=== PATIENT | female | born 1965 | race Caucasian/White ===

== ENCOUNTER 2022-01-15 15:12 | Emergency (ER) | payer MEDICAID ==
[~2022-01-15] VITALS: Ht 165.1 cm; Wt 83.5 kg
[~2022-01-15 15:12] MED LIST: IBUP-1953 PO
--- NOTE | 2022-01-15 15:30 | NUR ---
BIBS C/O CHRONIC BACK PAIN GETTING WORSE. DENIES ANY RECENT INJURY. PAIN IS 10/10 ON PAIN SCALE. AWAITING MD ORDERS.
[2022-01-15] MEDS ORDERED: IBUPROFEN 600 MG TABLET ONE (15:47)
[2022-01-15] MEDS ORDERED: HYDROCODONE/APAP 10/325MG TABLET ONE (15:47)
--- NOTE | 2022-01-15 15:58 | NUR ---
MOTRIN AND NORCO PROVIDED TO PT, VERÓNICA WELL. WARM BLANKET PROVIDED TO PT.
[2022-01-15] MEDS ORDERED: HYDROCODONE/APAP 10/325MG TABLET PO ONE (16:00)
[2022-01-15] MEDS ORDERED: IBUPROFEN 600 MG TABLET PO ONE (16:00)
[2022-01-15] MEDS ORDERED: CYCL10TA9 PO (16:55)
[2022-01-15] MEDS ORDERED: NAPR-1164 PO (16:55)
[2022-01-15 17:05] VITALS: BP 148/98
--- NOTE | 2022-01-15 17:05 | NUR ---
Patient discharged to home in stable condition. Written and verbal after care instructions given. Patient verbalizes understanding of instruction.
== END 2022-01-15 17:09 | disposition home or self-care (01) ==
LOC: ER 15:15
DX: G89.29 Other chronic pain (principal); M54.50 Low back pain, unspecified; G43.909 Migraine, unspecified, not intractable, without status migrainosus; Z79.1 Long term (current) use of non-steroidal anti-inflammatories (NSAID)
CPT/HCPCS: 72110-TC

== ENCOUNTER 2024-10-29 11:52 | Emergency (ER) | payer MEDICAID ==
[~2024-10-29] VITALS: Ht 162.6 cm; Wt 74.8 kg
[~2024-10-29 11:52] MED LIST changes: +CYCL10TA9 PO; +NAPR-1164 PO
[2024-10-29] MEDS ORDERED: MORPHINE SULFATE INJ 4 MG/ML DISP.SYRIN ONE (12:25)
[2024-10-29] MEDS ORDERED: ONDANSETRON HCL/PF 4 MG/2 ML VIAL ONE (12:25)
[2024-10-29] MEDS: IV NS 0.9% 1,000 ML BAG IV ONE (12:39)
[2024-10-29] MEDS: MORPHINE SULFATE INJ 2 MG/ML DISP.SYRIN IV ONE (12:40)
[2024-10-29] MEDS: ONDANSETRON HCL/PF 4 MG/2 ML VIAL IVP ONE (12:40)
[2024-10-29 12:42] LABS: PLATELET COUNT (AUTO) 344 K/uL (150-450); RED BLOOD CELL COUNT(AUTO) 4.86 MIL/uL (4.0-5.2); RED CELL DISTRIBUTION WIDTH 12.9 % (11.5-15.0); WHITE BLOOD COUNT (AUTO) 10.7 K/uL (4.3-11.0)
[2024-10-29 12:50] LABS: CALCIUM, SERUM 9.1 mg/dL (8.5-10.1); CREATININE 0.7 mg/dL (0.6-1.3); SODIUM SERUM 135.0 mmol/L (136-145); UREA NITROGEN, BLOOD 19.0 mg/dL (7-18)
[2024-10-29 12:55] LABS: ASPARTATE AMINOTRANSFERASE 24.0 U/L (15-37); TOTAL PROTEIN, SERUM 8.0 g/dL (6.4-8.2)
[2024-10-29] MEDS ORDERED: IV NS 0.9% 250 ML IV ONE (13:19)
[2024-10-29] MEDS ORDERED: CT SWABBABLE VALVE TRANS SET 1 EA INFUS.SET MC ONE (13:19)
[2024-10-29] MEDS ORDERED: IOHEXOL-300 100 ML VIAL IV ONE (13:19)
[2024-10-29 14:51] VITALS: BP 130/85; TEMP 98.7; O2SAT 98
== END 2024-10-29 14:51 | disposition home or self-care (01) ==
LOC: ER 12:15
DX: S30.1XXA Contusion of abdominal wall, initial encounter (principal); S20.211A Contusion of right front wall of thorax, initial encounter; M54.50 Low back pain, unspecified; R10.9 Unspecified abdominal pain; G43.909 Migraine, unspecified, not intractable, without status migrainosus; Z79.82 Long term (current) use of aspirin; V43.52XA Car driver injured in collision with other type car in traffic accident, initial encounter; Y93.89 Activity, other specified; Y92.488 Other paved roadways as the place of occurrence of the external cause; Y99.8 Other external cause status
CPT/HCPCS: 99285; 71260; 96374; 96361; 96375; 74177; 85025; 80048; 80076; 36415; 86850; J2270; J2405; J7030; J7050; Q9967